=== PATIENT | female | born 1985 | race Two or more races ===

== ENCOUNTER 2018-11-16 07:27 | Emergency (ER) | payer MEDICAID ==
[~2018-11-16] VITALS: Ht 162.6 cm; Wt 77.1 kg
[2018-11-16 07:42] VITALS: BP 153/93
== END 2018-11-16 08:38 | disposition home or self-care (01) ==
LOC: ER 07:27
DX: S29.012A Strain of muscle and tendon of back wall of thorax, initial encounter (principal); Z88.1 Allergy status to other antibiotic agents; X50.9XXA Other and unspecified overexertion or strenuous movements or postures, initial encounter; Y93.89 Activity, other specified; Y92.89 Other specified places as the place of occurrence of the external cause; Y99.8 Other external cause status
CPT/HCPCS: 81002